=== PATIENT | female | born 1995 | race Caucasian/White ===

== ENCOUNTER 2017-08-31 14:22 | Emergency (ER) | payer BC, OTHER ==
[~2017-08-31] VITALS: Ht 162.6 cm; Wt 47.6 kg
[2017-08-31 14:33] VITALS: TEMP 36.9; O2SAT 97; Ht 162.6 cm; Wt 47.6 kg
[2017-08-31 15:30] LABS: HEMATOCRIT 40.6 % (37-47); HEMOGLOBIN 14.8 g/dL (12.0-16.0); LYMPH % 22.6 %; LYMPH ABS # 0.65 K/uL (1.2-3.4); MEAN CELL VOLUME 86.6 fL (80-100); MEAN CORPUSCULAR HEMOGLOBIN 31.6 pg (25-34); MEAN CORPUSCULAR HGB CONC 36.5 g/dl (32-36); MEAN PLATELET VOLUME 8.9 fL (7.4-10.4); MONO % 17.4 %; NEUT ABS # 1.72 K/uL (1.4-6.5); PLATELET COUNT 128 K/uL (130-400); RED CELL DISTRIBUTION WIDTH CV 12.8 % (11.5-14.5); RED CELL DISTRIBUTION WIDTH SD 40.7 fL (36.4-46.3); WHITE BLOOD COUNT 2.87 K/uL (4.8-10.8)
[2017-08-31 15:46] LABS: CALCIUM 8.9 mg/dl (8.5-10.1); CREATININE 0.86 mg/dl (0.60-1.20); POTASSIUM 3.8 mmol/L (3.5-5.1)
--- NOTE | 2017-08-31 15:46 | DIAGNOSTIC IMAGING REPORT ---
HEAD WITHOUT CONTRAST (CT) CT DOSE: 638.56 mGycm HISTORY: Mental status change syncope TECHNIQUE: Multiaxial CT images of the head were performed without the use of intravenous contrast. A dose lowering technique was utilized adhering to the principles of ALARA. Comparison: None. Findings: The paranasal sinuses and mastoid air cells are clear. The calvarium and skull base are intact. The ventricles and sulci are within normal limits. There is no mass, hematoma, midline shift, or acute infarct. Mild frontal atrophy for age Impression: Mild frontal atrophy. No acute intracranial abnormality. note is made of mild mucosal thickening of the sinuses. The above report was generated using voice recognition software. It may contain grammatical, syntax or spelling errors. Electronically signed by: Nik Peralta M.D. 08/31/2017 3:45 PM Dictated Date/Time: 08/31/2017 3:44 PM
--- NOTE | 2017-08-31 16:17 | EMERGENCY ROOM VISIT NOTE ---
History First contact with patient: 14:35 Chief Complaint: SYNCOPE Stated Complaint: SYNCOPE Nursing Triage Summary: Pt was standing in class and got hot and vision was blurry. Pt had syncopal episode with LOC of about 30 seconds. Denies hitting head. Denies head or neck pain. Pt was diagnosed with Flu on Wednesday at [facility], did not take Tamiflu at all because she was feeling better yesterday. Denies any flu symptoms at this time. Pt reports she did not eat much this morning. History of Present Illness The patient is a 22 year old female who presents to the Emergency Room via EMS with complaints of syncopal episode. The patient states that she was standing in a classroom watching a demonstration when she started feeling warm and felt like she was going to pass out. She turned around to go sit down when her friends noted she was wobbly and they helped her to a sofa to lie down. The patient was unconscious for 30 seconds per her classmates. When she woke up she knew exactly what happened. There was no short-term memory loss. The patient did not fall. The patient currently has no symptoms. The patient denies ever passing out in the past. The patient does admit that she was diagnosed with the influenza on Wednesday at [facility]. She states she felt very achy and tired Wednesday and Wednesday but she started feeling better yesterday. She has been drinking a lot of fluids. The patient denies any history of any cardiac disorder. Review of Systems 10 system review was performed and was negative unless stated otherwise history of present illness. Past Medical/Surgical History No significant past medical history Social History Smoking Status: Never Smoker Smokeless Tobacco Use: No Alcohol Use: occasionally Drug Use: none Marital Status: single Housing Status: lives alone Occupation Status: [employer] student Current/Historical Medications No Active Prescriptions or Reported Meds Physical Exam Vital Signs Date Time Temp Pulse Resp B/P (MAP) Pulse Ox O2 Delivery O2 Flow Rate FiO2 08/31/17 15:35 105 08/31/17 14:33 36.9 97 14 114/71 98 Room Air 08/31/17 14:33 97 Room Air Physical Exam GENERAL: 22-year-old white female appears in no acute distress. MENTAL Status: Alert and oriented 3. EYES: PERRLA. EOMs intact. EARS: Canals clear. TMs without fluid level noted. NECK: Supple, no lymphadenopathy noted. No carotid bruits noted. LUNGS: Clear auscultation without wheezes rales or rhonchi. CARDIAC: Regular rate and rhythm without murmur. Pulses is full and equal throughout. ABDOMEN: Positive bowel sounds all 4 quadrants. Soft, nontender to palpation without organomegaly or masses. NEURO:Cranial nerves two through 12 intact. Cerebellar function intact with [id number]. Fine motor intact with alternating finger motions. Medical Decision & Procedures ER Provider Diagnostic Interpretation: Patient Name: LORENZO LUIS Unit Number: [id number] Dictated: 08/31/171543 Transcribed: 08/31/171543 MS Printed Date/Time: [~ rep prt dt]/[~ rep prt tm] [~ rep ct labl] - [~ rep ct ivnm] [facility] [place] [address] Dictated: 08/31/171543 Transcribed: 08/31/17 154 MS Printed Date/Time: [~ rep prt dt]/[~ rep prt tm] [~ rep ct labl] - [~ rep ct ivnm] HEAD WITHOUT CONTRAST (CT) CT DOSE: 638.56 mGycm HISTORY: Mental status change syncope TECHNIQUE: Multiaxial CT images of the head were performed without the use of intravenous contrast. A dose lowering technique was utilized adhering to the principles of ALARA. Comparison: None. Findings: The paranasal sinuses and mastoid air cells are clear. The calvarium and skull base are intact. The ventricles and sulci are within normal limits. There is no mass, hematoma, midline shift, or acute infarct. Mild frontal atrophy for age Impression: Mild frontal atrophy. No acute intracranial abnormality. note is made of mild mucosal thickening of the sinuses. The above report was generated using voice recognition software. It may contain grammatical, syntax or spelling errors. Electronically signed by: Nik Peralta M.D. 08/31/2017 3:45 PM Dictated Date/Time: 08/31/2017 3:44 PM The status of this report is Signed. Draft = Not yet reviewed or approved by Radiologist. Signed = Reviewed and approved by Radiologist. <AttendingPhy></AttendingPhy> <FamilyPhy></FamilyPhy> <PrimaryPhy>[facility]</PrimaryPhy> <UnitNumber>[id number]</UnitNumber> <VisitNumber> [id number]</VisitNumber> <PatientName>LORENZO LUIS</PatientName> <DateOfBirth>1995</DateOfBirth> <Location>[facility]</Location> <ServiceDate></ServiceDate> <MNE>ESINDI</MNE> <OrderingPhy>Sussy Peralta PA-C</ OrderingPhy> <OrderingPhyMNE>f rep ord dr chou</OrderingPhyMNE> <DictatingPhyMNE> f rep dict dr chou</DictatingPhyMNE> <CCListMNE>f rep ct mne</CCListMNE> < AdmittingPhyMNE>f pt admit dr chou</AdmittingPhyMNE> <AttendingPhyMNE>f pt attend dr chou</AttendingPhyMNE> <ConsultingPhyMNE>f pt consult dr chou</ConsultingPhyMNE> <FamilyPhyMNE>f pt fam dr chou</FamilyPhyMNE> <OtherPhyMNE>f pt other dr chou</OtherPhyMNE> < PrimaryPhyMNE>f pt prim care dr chou</PrimaryPhyMNE> <ReferringPhyMNE>f pt referring dr chou</ReferringPhyMNE> Laboratory Results 08/31/17 15:20 Red Blood Count 4.69, Mean Corpuscular Volume 86.6, Mean Corpuscular Hemoglobin 31.6, Mean Corpuscular Hemoglobin Concent 36.5, Mean Platelet Volume 8.9, Neutrophils (%) (Auto) 60.0, Lymphocytes (%) (Auto) 22.6, Monocytes (%) (Auto) 17.4, Eosinophils (%) (Auto) 0.0, Basophils (%) (Auto) 0.0, Neutrophils # (Auto ) 1.72, Lymphocytes # (Auto) 0.65, Monocytes # (Auto) 0.50, Eosinophils # (Auto ) 0.00, Basophils # (Auto) 0.00 08/31/17 15:20 Test 08/31/17 15:05 1/23/18 15:20 Urine Color DK YELLOW Urine Appearance CLOUDY (CLEAR) Urine pH 5.0 (4.5-7.5) Urine Specific Tyner 1.024 (1.000-1.030) Urine Protein NEG (NEG) Urine Glucose (UA) NEG (NEG) Urine Ketones 1+ (NEG) Urine Occult Blood NEG (NEG) Urine Nitrite NEG (NEG) Urine Bilirubin NEG (NEG) Urine Urobilinogen NEG (NEG) Urine Leukocyte Esterase SMALL (NEG) Urine WBC (Auto) 1-5 /hpf (0-5) Urine RBC (Auto) 0-4 /hpf (0-4) Urine Hyaline Casts (Auto) 1-5 /lpf (0-5) Urine Epithelial Cells (Auto) >30 /lpf (0-5) Urine Bacteria (Auto) NEG (NEG) White Blood Count 2.87 K/uL (4.8-10.8) Red Blood Count 4.69 M/uL (4.2-5.4) Hemoglobin 14.8 g/dL (12.0-16.0) Hematocrit 40.6 % (37-47) Mean Corpuscular Volume 86.6 fL (80-100) Mean Corpuscular Hemoglobin 31.6 pg (25-34) Mean Corpuscular Hemoglobin Concent 36.5 g/dl (32-36) Platelet Count 128 K/uL (130-400) Mean Platelet Volume 8.9 fL (7.4-10.4) Neutrophils (%) (Auto) 60.0 % Lymphocytes (%) (Auto) 22.6 % Monocytes (%) (Auto) 17.4 % Eosinophils (%) (Auto) 0.0 % Basophils (%) (Auto) 0.0 % Neutrophils # (Auto) 1.72 K/uL (1.4-6.5) Lymphocytes # (Auto) 0.65 K/uL (1.2-3.4) Monocytes # (Auto) 0.50 K/uL (0.11-0.59) Eosinophils # (Auto) 0.00 K/uL (0-0.5) Basophils # (Auto) 0.00 K/uL (0-0.2) RDW Standard Deviation 40.7 fL (36.4-46.3) RDW Coefficient of Variation 12.8 % (11.5-14.5) Immature Granulocyte % (Auto) 0.0 % Immature Granulocyte # (Auto) 0.00 K/uL (0.00-0.02) Prothrombin Time 10.3 SECONDS (9.0-12.0) Prothromb Time International Ratio 1.0 (0.9-1.1) Activated Partial Thromboplast Time 21.0 SECONDS (21.0-31.0) Partial Thromboplastin Ratio 0.8 Anion Gap 7.0 mmol/L (3-11) Est Creatinine Clear Calc Drug Dose 77.8 ml/min Estimated GFR () 111.9 Estimated GFR (Non- 96.6 BUN/Creatinine Ratio 14.2 (10-20) Calcium Level 8.9 mg/dl (8.5-10.1) ECG Indication: syncope Rhythm: normal sinus Findings: no acute ischemic change Comparison ECG Date: no prior available ED Course The patient was evaluated. The patient was placed on a monitor and continuous pulse ox. IV access was obtained. CBC and differential, renal profile, coags were ordered. Urinalysis was ordered. EKG was ordered interpreted by myself as above without any acute ST findings. CT of the head was ordered and interpreted by the radiologist as above without any acute findings. Labs are reviewed and were unremarkable. The patient's white count was slightly low. Urinalysis was negative. The patient was informed of all findings and discharged home in stable condition. Medical Decision Differential diagnosis include cardiac arrhythmia, vasovagal syncope, dehydration, hypoglycemia, brain neoplasm, severe anemia [place] Drug Monitoring Program Search Results: patient reviewed within database Medication Reconcilliation Current Medication List: was personally reviewed by me Blood Pressure Screening Patient's blood pressure: Normal blood pressure Impression Primary Impression: Syncope Additional Impression: Influenza Departure Information Dispostion Home / Self-Care Condition GOOD Prescriptions No Active Prescriptions or Reported Meds Forms HOME CARE DOCUMENTATION FORM, IMPORTANT VISIT INFORMATION Patient Instructions ED Syncope Vasovagal, My [facility] [employer] Additional Instructions Keep well-hydrated. If you experience any severe chest pain, severe headaches, shortness of breath return to the ER immediately. Problem Qualifiers Primary Impression: Syncope Syncope type: vasovagal syncope Qualified Codes: R55 - Syncope and collapse
[2017-08-31 16:30] VITALS: BP 117/71; PULSE 104; O2SAT 98
== END 2017-08-31 16:31 | disposition home or self-care (01) ==
LOC: C.EDB 14:24 → C.EDC 16:31
DX: R55 Syncope and collapse (principal); J11.1 Influenza due to unidentified influenza virus with other respiratory manifestations